=== PATIENT | female | born 1955 | race Caucasian/White ===

== ENCOUNTER 2017-12-04 11:31 | Inpatient (IN) | payer BC ==
[2017-12-04 12:28] LABS: BASO # 0.1 x10^3/uL (0.0-0.2); BASO % 1 % (0-3); EOS % 0 % (0-3); HEMATOCRIT 27.4 % (36.0-47.0); HEMOGLOBIN 8.7 g/dL (12.0-15.5); LYMPH # 0.8 x10^3/uL (1.0-4.8); LYMPH % 5 % (24-48); MEAN CORPUSCULAR HEMOGLOBIN 26 pg (25-35); MEAN CORPUSCULAR HGB CONC 32 g/dL (31-37); MEAN CORPUSCULAR VOLUME 82 fL (79-100); MONO % 5 % (0-9); NEUT # 16.4 x10^3uL (1.8-7.7); NEUT % 90 % (31-73); RED BLOOD COUNT 3.36 x10^6/uL (3.50-5.40); RED CELL DISTRIBUTION WIDTH 17.5 % (11.5-14.5); WHITE BLOOD COUNT 18.3 x10^3/uL (4.0-11.0)
[2017-12-04] MEDS: METOPROLOL TARTRATE 5 MG/5 ML VIAL. IVP (12:40)
[2017-12-04 12:42] LABS: ANION GAP 11 (6-14); BLOOD UREA NITROGEN 13 mg/dL (7-20); CALCIUM 10.4 mg/dL (8.5-10.1); CARBON DIOXIDE 27 mmol/L (21-32); CHLORIDE 92 mmol/L (98-107); CREATININE 0.8 mg/dL (0.6-1.0); GFR 73.2; GLUCOSE 88 mg/dL (70-99); POTASSIUM 4.7 mmol/L (3.5-5.1); SODIUM 130 mmol/L (136-145)
[2017-12-04 12:47] LABS: ADD MAN DIFF? YES; PLATELET COUNT 1065 x10^3/uL (140-400)
[2017-12-04 12:49] LABS: ALBUMIN 1.3 g/dL (3.4-5.0); ALK PHOS 460 U/L (46-116); ALT (SGPT) 13 U/L (14-59); AST (SGOT) 32 U/L (15-37); DIRECT BILIRUBIN 0.3 mg/dL (0.0-0.2); LIPASE 48 U/L (73-393); TOTAL BILIRUBIN 0.4 mg/dL (0.2-1.0); TOTAL PROTEIN 7.2 g/dL (6.4-8.2)
[2017-12-04 12:50] LABS: TROPONINI < 0.017 ng/mL (0.000-0.055)
[2017-12-04 12:51] LABS: NT-PRO BNP 693 pg/mL (0-124)
[2017-12-04] MEDS: ESMOLOL 2500MG/250ML PREMIX 250 ML IV (12:54)
[2017-12-04 13:00] LABS: LACTIC ACID 2.2 mmol/L (0.4-2.0)
[2017-12-04] MEDS ORDERED: ONDANSETRON PF 4 MG/2 ML VIAL. IV (13:00)
[2017-12-04 14:09] LABS: LACTIC ACID 1.7 mmol/L (0.4-2.0)
[2017-12-04 14:47] LABS: % BANDS 25 % (0-9); % EOS 1 % (0-5); % LYMPHS 5 % (24-48); % MONOS 4 % (0-10); % SEGS 65 % (35-66); PLT ESTIMATE INCREASED (ADEQUATE)
[2017-12-04 14:49] LABS: ANISOCYTOSIS SLIGHT
[2017-12-04 14:50] LABS: POLYCHROMASIA SLIGHT
[2017-12-04] MEDS: IV NORMAL SALINE 500ML BAG 500 ML IV (15:00)
[2017-12-04 15:49] LABS: FREE T4 1.67 ng/dL (0.76-1.46)
[2017-12-04 15:49] LABS: THYROID STIM HORMONE (TSH) 2.162 uIU/mL (0.358-3.74)
[2017-12-04] MEDS: PHENYLEPHRINE INJ 20 MG in IV NORMAL SALINE 250ML 250 ML IV ×2 (16:00→22:32)
[2017-12-04] MEDS: DIGOXIN IV 500 MCG/2 ML AMPUL. IV (16:07)
[2017-12-04 16:56] LABS: TROPONINI < 0.017 ng/mL (0.000-0.055)
[2017-12-04] MEDS ORDERED: ONDANSETRON ODT 4 MG TAB.RAPDIS. PO (17:15)
[2017-12-04] MEDS ORDERED: ACETAMINOPHEN 325 MG TABLET. PO (17:15)
[2017-12-04] MEDS ORDERED: HYOSCYAMINE 0.125 MG TAB.RAPDIS PO (17:15)
[2017-12-04] MEDS: MEROPENEM 1 GM in IV NORMAL SALINE 100ML 100 ML IV ×2 (17:32→22:47)
[2017-12-04] MEDS: MORPHINE SULFATE 2 MG/ML DISP.SYRIN. IV ×2 (19:50→22:07)
[2017-12-04] MEDS: ENOXAPARIN 40 MG/0.4 ML SYRINGE. SQ (19:51)
[2017-12-04] MEDS: MICAFUNGIN 100 MG in IV NORMAL SALINE 100ML 100 ML IV (19:51)
[2017-12-04] MEDS: MIRTAZAPINE 15 MG TABLET PO (20:53)
[2017-12-04] MEDS: LACTOBACILLUS RHAMNOSUS GG 1 CAPSULE. PO (20:54)
[2017-12-04] MEDS: SODIUM BICARBONATE 650 MG TABLET. PO (20:54)
[2017-12-04] MEDS: IV NORMAL SALINE 1000ML BAG 1,000 ML IV (21:16)
[2017-12-04] MEDS: ALTEPLASE 2 MG VIAL INT CAT (21:16)
[2017-12-04] MEDS ORDERED: MEROPENEM 1 GM in IV NORMAL SALINE 100ML 100 ML IV (22:00)
[2017-12-04 23:24] LABS: TROPONINI < 0.017 ng/mL (0.000-0.055)
[2017-12-05] MEDS: IV NORMAL SALINE 1000ML BAG 1,000 ML IV (02:17)
[2017-12-05] MEDS: MORPHINE SULFATE 2 MG/ML DISP.SYRIN. IV (02:47)
[2017-12-05 03:15] LABS: MRSA BY PCR Negative (Negative)
[2017-12-05 05:46] LABS: ADD MAN DIFF? NO
[2017-12-05] MEDS: MEROPENEM 1 GM in IV NORMAL SALINE 100ML 100 ML IV ×2 (05:46→13:35)
[2017-12-05 05:55] LABS: BASO # 0.2 x10^3/uL (0.0-0.2); BASO % 1 % (0-3); EOS % 0 % (0-3); HEMATOCRIT 25.3 % (36.0-47.0); HEMOGLOBIN 7.9 g/dL (12.0-15.5); LYMPH % 7 % (24-48); MEAN CORPUSCULAR HEMOGLOBIN 26 pg (25-35); MEAN CORPUSCULAR HGB CONC 31 g/dL (31-37); MEAN CORPUSCULAR VOLUME 81 fL (79-100); MONO # 1.1 x10^3/uL (0.0-1.1); MONO % 7 % (0-9); NEUT # 12.8 x10^3uL (1.8-7.7); NEUT % 85 % (31-73); RED BLOOD COUNT 3.11 x10^6/uL (3.50-5.40); RED CELL DISTRIBUTION WIDTH 17.6 % (11.5-14.5); WHITE BLOOD COUNT 15.1 x10^3/uL (4.0-11.0)
[2017-12-05 05:59] LABS: PLATELET COUNT 1158 x10^3/uL (140-400)
[2017-12-05 06:15] LABS: ANION GAP 10 (6-14); BLOOD UREA NITROGEN 10 mg/dL (7-20); CALCIUM 9.6 mg/dL (8.5-10.1); CARBON DIOXIDE 25 mmol/L (21-32); CHLORIDE 99 mmol/L (98-107); CREATININE 0.6 mg/dL (0.6-1.0); GLUCOSE 91 mg/dL (70-99); MAGNESIUM 1.9 mg/dL (1.8-2.4); POTASSIUM 3.9 mmol/L (3.5-5.1); SODIUM 134 mmol/L (136-145)
[2017-12-05] MEDS: CYCLOBENZAPRINE 10 MG TABLET. PO ×2 (09:45→14:26)
[2017-12-05] MEDS: LACTOBACILLUS RHAMNOSUS GG 1 CAPSULE. PO (09:45)
[2017-12-05] MEDS: MULTIVITAMIN with MINERAL TABLET. PO (09:45)
[2017-12-05] MEDS: SODIUM BICARBONATE 650 MG TABLET. PO (09:46)
[2017-12-05] MEDS: oxyCODONE IR 5 MG TABLET PO (09:51)
[2017-12-05 12:30] LABS: % SAT IRON 12 % (15-34); IRON,SERUM 17 ug/dL (50-170)
[2017-12-05 13:12] LABS: FERRITIN 3150 ng/mL (8-252)
== END 2017-12-05 15:40 | disposition short-term general hospital (02) | DRG 308 ==
LOC: ER 11:31 → 1 WEST ICU 13:10
DX: I48.91 Unspecified atrial fibrillation (principal); E43 Unspecified severe protein-calorie malnutrition; D62 Acute posthemorrhagic anemia; E87.1 Hypo-osmolality and hyponatremia; N32.1 Vesicointestinal fistula; E46 Unspecified protein-calorie malnutrition; K21.9 Gastro-esophageal reflux disease without esophagitis; I95.9 Hypotension, unspecified; R79.89 Other specified abnormal findings of blood chemistry; E86.0 Dehydration; I10 Essential (primary) hypertension; Z16.11 Resistance to penicillins; B96.1 Klebsiella pneumoniae [K. pneumoniae] as the cause of diseases classified elsewhere; F32.9 Major depressive disorder, single episode, unspecified; Z83.3 Family history of diabetes mellitus; Z88.8 Allergy status to other drugs, medicaments and biological substances; Z93.3 Colostomy status; Z93.6 Other artificial openings of urinary tract status; Z68.24 Body mass index [BMI] 24.0-24.9, adult; Z90.721 Acquired absence of ovaries, unilateral
CPT/HCPCS: 36415; 51702; 71045; 80048; 80076; 82728; 83540; 83550; 83605; 83690; 83735; 83880; 84439; 84443; 84481; 84484; 85007; 85025; 87040; 87641; 93005; 93306; 96365; 96375; 99291; J1160; J1650; J2020; J2185; J2248; J2270; J2997; J3490; J7030; J7040; J7050